=== PATIENT | female | born 1960 | race Caucasian/White ===

== ENCOUNTER 2016-10-19 11:21 | Emergency (ER) | payer MEDICARE, OTHER ==
[2016-10-19 10:32] LABS: BASOPHILS 0.5 %; BASOPHILS ABSOLUTE 0.02 10/3/uL (0.0-0.16); EOSINOPHILS 3.2 %; EOSINOPHILS ABSOLUTE 0.12 10/3/uL (0.0-0.53); ER CBC TAT 0 Hrs 05 Mins; LYMPHOCYTES 26.8 %; MEAN CORPUS HGB CONC 33.6 g/dL (32.0-36.0); MEAN CORPUSCULAR HEMOGLOB 30.3 pg (26.0-34.0); MEAN CORPUSCULAR VOLUME 90.2 fL (80-100); MEAN PLATELET VOLUME 10.5 fL (9.2-13.0); MONOCYTES 9.7 %; MONOCYTES ABSOLUTE 0.36 10/3/uL (0.21-1.20); NEUTROPHILS 59.8 %; NEUTROPHILS ABSOLUTE 2.23 10/3/uL (2.02-8.40); RBC DISTRIBUTION WIDTH 12.1 % (12.0-16.0); WHITE BLOOD CELLS 3.7 10/3/uL (4.5-10.5)
[2016-10-19 10:33] LABS: HEMOGLOBIN 15.8 g/dL (12.0-16.0); MANUAL DIFF NO %; PLATELET COUNT 238 10/3/uL (150-400); RED CELL COUNT 5.21 10/6/uL (4.0-5.6)
[2016-10-19 10:39] LABS: INTERNATIONAL NORMAL RATI 0.9 UNITS (-); PARTIAL THROMBO TIME 24.9 SEC (22.5-37.2)
[2016-10-19 10:40] LABS: PROTIME (NOT ORD) 12.1 SEC (12.0-14.5)
[~2016-10-19 11:21] MED LIST: AMITIZA PO; AMITIZA24 PO; ASAB PO; COMBIPATCH TD; CYMBALTA PO; CYMBALTA30 PO; CYMBALTA60 PO; DEPAKOTE PO; DIOVAN PO; EMBEDA1 CA1 PO; FLECTOR1.3 % TOP; FLEX PO; GABAPENTIN PO; HARD NAILS PO; HORMONE CREAM TOP; LOP25 PO; LORAZAPAM PO; MAGNESIUM PO; MAXIMUM D3 PO; MSIMMR15 PO; MULTIVIT/MIN PO; NEUR100 PO; NEUR300 PO; NOVLOGPUMP SC; NOVOLOG PUMP; NOVOLOG SC; T PO; VIT C PO; VITAINJ; VITAMIN C PO; VITAMIN D PO; ZOFRAN4 PO; [UNRECOGNIZED DRUG - REMARK] PO
[2016-10-19 12:03] LABS: BUN (BLOOD UREA NITROGEN) 10 MG/DL (6-23); CALCIUM, SERUM 8.9 MG/DL (8.5-10.4); CHEST PAIN PROFILE TAT 0 Hrs 20 Mins; CHLORIDE, SERUM 104 MMOL/L (96-112); CO2 (CARBON DIOXIDE) 31 MMOL/L (24-34); CREATININE 0.88 MG/DL (0.55-1.02); GFR AFRICAN AMERICAN 85 ML/MIN (>=60); GFR NON AFRICAN AMERICAN 73 ML/MIN (>=60); GLUCOSE, SERUM 420 MG/DL (60-99); POTASSIUM, SERUM 5.3 MMOL/L (3.5-5.3); SODIUM, SERUM 141 MMOL/L (135-148); TROPONIN I <0.02 NG/ML (<0.05)
[2017-01-05] MEDS ORDERED: ASAB PO (11:52)
[2017-01-05] MEDS ORDERED: VITC500 PO (11:53)
[2017-01-05] MEDS ORDERED: VITAMIN D31000 UNIT PO (11:53)
[2017-01-05] MEDS ORDERED: LOP25 PO (12:02)
[2017-01-05] MEDS ORDERED: NOVLOGPUMP SC (12:03)
[2017-01-05] MEDS ORDERED: CYMBALTA60 PO (12:04)
[2017-01-05] MEDS ORDERED: BOTOX INJECTION (12:10)
[2017-03-09] MEDS ORDERED: LOP50 PO (12:39)
[2017-03-09] MEDS ORDERED: CELEBREX2 PO (12:39)
[2017-04-03] MEDS ORDERED: NOVLOGPUMP (14:05)
[2017-04-03] MEDS ORDERED: BOTOX INJECTION (14:07)
== END 2016-10-19 14:11 | disposition home or self-care (01) ==
LOC: ER 11:21
PROVIDERS: Emergency Medicine
DX: I47.1 Supraventricular tachycardia (principal); E10.9 Type 1 diabetes mellitus without complications; Z88.5 Allergy status to narcotic agent; Z91.040 Latex allergy status; Z79.82 Long term (current) use of aspirin; Z79.4 Long term (current) use of insulin; Z79.899 Other long term (current) drug therapy
CPT/HCPCS: 71010; 80048; 82962; 83735; 84484; 85025; 85610; 85730; 93005; 93225; 96374; 96375; 99284; A9270-GY